=== PATIENT | male | born 1945 | race Caucasian/White ===

== ENCOUNTER 2016-12-31 05:23 | Day surgery (SDC) | payer MEDICARE, OTHER ==
[~2016-12-31 05:23] MED LIST: ALEVE220 M3 PO; ASPIRIN EC81 MG PO; AUGMENTIN 875-1 EAC2 PO; CHOLESTEROL PILL PO; FLOMAX0.4 M1 PO; MULTI-VITAMIN1 EAC3 PO; PERCOCET 5-3251 EACH PO; VITAMIN C500 M6 PO; ZOCOR40 M1 PO; [UNRECOGNIZED DRUG - REMARK]
== END 2016-12-31 10:40 ==
LOC: SRG 05:23 → SHSB 05:24 → ORW 07:29 → PACU 08:14 → SHSB 09:05
PROC: 0D9Q0ZZ Drainage of Anus, Open Approach (ICD-10-PCS; principal; 2016-12-31)
DX: K60.3 Anal fistula (principal); E78.5 Hyperlipidemia, unspecified; Z85.46 Personal history of malignant neoplasm of prostate; Z90.49 Acquired absence of other specified parts of digestive tract; Z90.79 Acquired absence of other genital organ(s); Z98.890 Other specified postprocedural states
CPT/HCPCS: J0690